=== PATIENT | female | born 1995 | race Caucasian/White ===

== ENCOUNTER 2016-10-27 09:18 | Inpatient (IN) | payer BC ==
[~2016-10-27] VITALS: Ht 170.2 cm; Wt 68.4 kg
[2016-10-27] MEDS ORDERED: ADDERALL7.5 MG PO (09:27)
[2016-10-27] MEDS ORDERED: CELEXA 20MG20 MG/TAB PO (09:27)
[2016-10-27] MEDS ORDERED: ADDERALL XR25 MG PO (09:27)
[2016-10-27 10:29] LABS: HEMATOCRIT 38.4 % (35.0-45.0); MEAN CELL VOLUME 91 fl (80.0-95.0); MEAN CORPUSCULAR HEMOGLOBIN 31 pg (26.0-32.0); MEAN CORPUSCULAR HGB CONC 34 g/dl (33.0-37.0); MEAN PLATELET VOLUME 9.7 fl (7.4-10.4); PLATELET COUNT 303 K/mm3 (130-400); RED BLOOD COUNT 4.24 M/mm3 (4.10-5.30); WHITE BLOOD COUNT 17.6 K/mm3 (4.8-10.8)
[2016-10-27 10:30] LABS: ADD PATHOLOGY DIFF REVIEW NO
[2016-10-27 10:55] LABS: BAND 17 % (0-10); METAMYELOCYTE 2 % (0-0); MYELOCYTE 6 % (0-0); NEUTROPHILS 58 % (42.0-75.2); PLATELET ESTIMATE INCREASED (NORMAL); TOTAL CELLS COUNTED 100
[2016-10-27 11:10] LABS: ADJUSTED CALCIUM 9.5 mg/dL (8.4-10.2); ALBUMIN 4.4 gm/dL (3.5-5.0); BILIRUBIN,TOTAL 1.3 mg/dL (0.0-1.0); CALCIUM 9.8 mg/dL (8.4-10.2); CREATININE, serum 0.74 mg/dL (0.52-1.25); POTASSIUM 4.3 mmol/L (3.4-5.0); TOTAL PROTEIN 8.1 gm/dL (6.4-8.2)
[2016-10-27 15:56] VITALS: BP 109/70; PULSE 102; TEMP 99.8
[2016-10-27 18:14] VITALS: TEMP 97.9
[2016-10-27 19:19] VITALS: BP 112/73; PULSE 95; TEMP 99
[2016-10-27 22:02] LABS: PH 6 (5-8); SQUAMOUS EPITHELIAL None Seen /hpf; URINE APPEARANCE Turbid; URINE BACTERIA Occasional /hpf; URINE BILIRUBIN Negative (NEGATIVE); URINE BLOOD 1+ (NEGATIVE); URINE COLOR Yellow; URINE GLUCOSE Negative (NEGATIVE); URINE KETONE 1+ (NEGATIVE); URINE UROBILINOGEN Negative (NEGATIVE)
[2016-10-27 22:04] LABS: URINE WBC 0-2 /hpf
[2016-10-28 00:17] VITALS: BP 111/55; PULSE 86; TEMP 97.8
[2016-10-28 04:16] VITALS: BP 116/75; PULSE 90; TEMP 98.1
[2016-10-28 06:57] LABS: BASO % 0.2 % (0.0-2.0); EOS # 0.2 (0.0-0.7); EOS % 1.3 % (0-4.0); GRAN # 10.2 (1.4-6.5); GRAN % 75.8 % (42.2-75.2); HEMOGLOBIN 12.1 g/dl (12.0-15.0); LYMPH # 1.9 (1.2-3.4); LYMPH % 14.1 % (20.0-51.0); MEAN CELL VOLUME 93 fl (80.0-95.0); MEAN CORPUSCULAR HEMOGLOBIN 31 pg (26.0-32.0); MEAN CORPUSCULAR HGB CONC 33 g/dl (33.0-37.0); MONO # 1.1 (0.1-0.6); MONO % 7.8 % (1.7-9.3); PLATELET COUNT 282 K/mm3 (130-400); RED BLOOD COUNT 3.91 M/mm3 (4.10-5.30); REDCELL DISTRIBUTION WIDTH-CV 12.1 % (11.5-14.5); WHITE BLOOD COUNT 13.5 K/mm3 (4.8-10.8)
[2016-10-28 07:03] LABS: HEMATOCRIT 36.3 % (35.0-45.0)
[2016-10-28 07:11] LABS: CREATININE, serum 0.7 mg/dL (0.52-1.25); POTASSIUM 4.1 mmol/L (3.4-5.0)
[2016-10-28 08:00] VITALS: BP 113/76; PULSE 84; TEMP 98.2
[2016-10-28 11:49] VITALS: BP 125/72; PULSE 86; TEMP 98.6
[2016-10-28 17:33] VITALS: BP 111/67; PULSE 94; TEMP 98.2
[2016-10-28 20:07] VITALS: BP 132/67; PULSE 89; TEMP 98.1
[2016-10-29 00:14] VITALS: BP 123/74; PULSE 98; TEMP 98.3
[2016-10-29 05:43] VITALS: BP 112/70; PULSE 100; TEMP 98.4
[2016-10-29 07:11] LABS: BASO % 0.3 % (0.0-2.0); EOS # 0.2 (0.0-0.7); EOS % 1.5 % (0-4.0); GRAN # 9.3 (1.4-6.5); GRAN % 74.2 % (42.2-75.2); HEMOGLOBIN 12.1 g/dl (12.0-15.0); LYMPH # 2.1 (1.2-3.4); LYMPH % 16.3 % (20.0-51.0); MEAN CELL VOLUME 91 fl (80.0-95.0); MEAN CORPUSCULAR HEMOGLOBIN 30 pg (26.0-32.0); MEAN CORPUSCULAR HGB CONC 34 g/dl (33.0-37.0); MEAN PLATELET VOLUME 9.5 fl (7.4-10.4); MONO # 0.8 (0.1-0.6); MONO % 6.7 % (1.7-9.3); PLATELET COUNT 331 K/mm3 (130-400); RED BLOOD COUNT 3.98 M/mm3 (4.10-5.30); WHITE BLOOD COUNT 12.6 K/mm3 (4.8-10.8)
[2016-10-29 10:00] VITALS: BP 112/68; PULSE 88; TEMP 97.5
[2016-10-29 13:53] VITALS: BP 115/62; PULSE 76; TEMP 97.8
[2016-10-29 21:33] VITALS: BP 125/78; PULSE 82; TEMP 98.4
[2016-10-29 23:05] VITALS: BP 113/75; PULSE 74; TEMP 97.7
[2016-10-30 04:00] VITALS: BP 119/52; PULSE 85; TEMP 98.6
[2016-10-30 07:31] VITALS: BP 111/67; PULSE 91; TEMP 97.8
[2016-10-30 13:06] VITALS: BP 119/62; PULSE 91; TEMP 98.6
[2016-10-30] MEDS ORDERED: CLEOCIN HCL300 MG PO (17:12)
[2016-10-30] MEDS ORDERED: NORCO 325 MG-51 TAB PO (17:14)
== END 2016-10-30 17:51 | disposition home or self-care (01) | DRG 195 ==
LOC: COL.ER 09:18 → MEDICAL 11:15
PROVIDERS: Physician Assistant
DX: J18.9 Pneumonia, unspecified organism (principal); J02.0 Streptococcal pharyngitis; F90.9 Attention-deficit hyperactivity disorder, unspecified type; F32.9 Major depressive disorder, single episode, unspecified; F41.9 Anxiety disorder, unspecified
CPT/HCPCS: 99222-AI; 99232-AI; 99239; J0692; J1200; J1650; J1956; J2405; J2543; J3370; J7030; J7050; Q9967

== ENCOUNTER 2017-06-08 12:03 | Emergency (ER) | payer OTHER ==
[~2017-06-08] VITALS: Ht 170.2 cm; Wt 61.4 kg
[~2017-06-08 12:03] MED LIST: ADDERALL XR25 MG PO; ADDERALL7.5 MG PO; CELEXA 20MG20 MG/TAB PO; CLEOCIN HCL300 MG PO; NORCO 325 MG-51 TAB PO
[2017-06-08 12:07] VITALS: TEMP 98.6
[2017-06-08 13:42] LABS: BASO % 0.3 % (0.0-2.0); EOS # 0.1 (0.0-0.7); EOS % 0.7 % (0-4.0); GRAN # 5.7 (1.4-6.5); GRAN % 65.2 % (42.2-75.2); HEMATOCRIT 43.7 % (35.0-45.0); HEMOGLOBIN 15.2 g/dl (12.0-15.0); LYMPH # 2.5 (1.2-3.4); LYMPH % 28.2 % (20.0-51.0); MEAN CELL VOLUME 91 fl (80.0-95.0); MEAN CORPUSCULAR HEMOGLOBIN 32 pg (26.0-32.0); MEAN CORPUSCULAR HGB CONC 35 g/dl (33.0-37.0); MEAN PLATELET VOLUME 9.7 fl (7.4-10.4); MONO # 0.5 (0.1-0.6); MONO % 5.4 % (1.7-9.3); PLATELET COUNT 318 K/mm3 (130-400); RED BLOOD COUNT 4.83 M/mm3 (4.10-5.30); REDCELL DISTRIBUTION WIDTH-CV 13.2 % (11.5-14.5)
[2017-06-08 13:47] LABS: INR 1.1 (0.8-3.0); PROTHROMBIN TIME 13.1 SECONDS (9.7-12.8)
[2017-06-08 13:49] LABS: PARTIAL THROMBOPLASTIN TIME 34.8 SECONDS (26.0-37.0)
[2017-06-08 13:54] LABS: ALANINE AMINOTRANSFERASE 30 U/L (9-52); ALBUMIN 4.9 gm/dL (3.5-5.0); ALKALINE PHOSPHATASE 70 U/L (50-136); ANION GAP 16 mmol/L (7-16); AST,SGOT 28 U/L (15-37); BILIRUBIN,TOTAL 1.7 mg/dL (0.0-1.0); BLOOD UREA NITROGEN 13 mg/dL (7-17); CALCIUM 10.2 mg/dL (8.4-10.2); CARBON DIOXIDE 24 mmol/L (22-30); CHLORIDE 102 mmol/L (98-107); GLUCOSE 80 mg/dL (74-106); POTASSIUM 3.8 mmol/L (3.4-5.0); SODIUM 142 mmol/L (137-145); TOTAL PROTEIN 8.7 gm/dL (6.4-8.2)
[2017-06-08 13:58] LABS: C-REACTIVE PROTEIN < 0.5 mg/dL (0.0-0.9)
[2017-06-08 14:03] LABS: TROPONIN-I < 0.012 ng/mL (0.000-0.034)
[2017-06-08 14:14] LABS: ERYTHROCYTE SEDIMENTATION RATE 1 mm/hr (0-20)
[2017-06-08 14:51] VITALS: BP 121/88; PULSE 100
== END 2017-06-08 14:54 | disposition home or self-care (01) ==
LOC: COL.ER 12:03
PROVIDERS: Physician Assistant
DX: R00.2 Palpitations (principal); F90.9 Attention-deficit hyperactivity disorder, unspecified type

== ENCOUNTER 2017-12-28 02:26 | Emergency (ER) | payer OTHER ==
[~2017-12-28] VITALS: Ht 170.2 cm; Wt 70.5 kg
[2017-12-28 02:31] VITALS: BP 134/89; TEMP 98.3
[2017-12-28] MEDS ORDERED: CIPRODEX OT (03:00)
[2017-12-28] MEDS ORDERED: OMNICEF 300MG300 MG PO (03:00)
[2017-12-28] MEDS ORDERED: LEXAPRO20 MG PO (03:05)
[2017-12-28 03:06] VITALS: PULSE 85
== END 2017-12-28 03:36 | disposition home or self-care (01) ==
LOC: COL.ER 02:26
DX: H60.91 Unspecified otitis externa, right ear (principal); J02.9 Acute pharyngitis, unspecified

== ENCOUNTER → 2018-01-02 | Outpatient (CLI) | payer OTHER ==
[~2018-01-02] MED LIST changes: +CIPRODEX OT; +LEXAPRO20 MG PO; +OMNICEF 300MG300 MG PO
== END ==
LOC: BHSO 13:50
DX: F41.0 Panic disorder [episodic paroxysmal anxiety] (principal)

== ENCOUNTER → 2018-01-23 | Outpatient (CLI) | payer OTHER | LOC: BHSO 14:57 | DX: F41.0 Panic disorder [episodic paroxysmal anxiety] (principal) ==

== ENCOUNTER → 2018-02-09 | Outpatient (CLI) | payer OTHER | LOC: BHSO 11:00 | DX: F41.0 Panic disorder [episodic paroxysmal anxiety] (principal) ==

== ENCOUNTER 2019-04-27 22:13 | Emergency (ER) | payer SELFPAY ==
[~2019-04-27] VITALS: Ht 170.2 cm; Wt 72.7 kg
[2019-04-27 22:21] VITALS: TEMP 98.5
[2019-04-27] MEDS ORDERED: MYDAYIS ER 3737.5 MG PO (22:39)
[2019-04-27] MEDS ORDERED: LAMICTAL 25MG T25 MG PO (22:39)
[2019-04-27 23:45] LABS: BASO % 0.4 % (0.0-2.0); EOS # 0.1 (0.0-0.7); EOS % 1.3 % (0-4.0); GRAN # 4.4 (1.4-6.5); GRAN % 53.3 % (42.2-75.2); HEMATOCRIT 41.5 % (37.0-47.0); HEMOGLOBIN 14.1 g/dl (12.5-16.0); LYMPH # 3.5 (1.2-3.4); MEAN CELL VOLUME 92 fl (80.0-100.0); MEAN CORPUSCULAR HEMOGLOBIN 31 pg (27.0-31.0); MEAN CORPUSCULAR HGB CONC 34 g/dl (33.0-37.0); MEAN PLATELET VOLUME 9.7 fl (7.4-10.4); MONO # 0.2 (0.1-0.6); MONO % 2.8 % (1.7-9.3); PLATELET COUNT 300 K/mm3 (130-400); RED BLOOD COUNT 4.52 M/mm3 (4.10-5.30); REDCELL DISTRIBUTION WIDTH-CV 11.9 % (11.5-14.5)
[2019-04-27 23:52] LABS: ACETAMINOPHEN < 10 ug/mL (10-30); ALANINE AMINOTRANSFERASE 17 U/L (9-52); ALBUMIN 4.7 gm/dL (3.5-5.0); ALCOHOL(ethanol),MEDICAL 123 mg/dL; ALKALINE PHOSPHATASE 49 U/L (50-136); ANION GAP 10 mmol/L (7-16); AST,SGOT 25 U/L (15-37); BILIRUBIN,TOTAL 0.5 mg/dL (0.0-1.0); BLOOD UREA NITROGEN 11 mg/dL (7-17); CALCIUM 9.4 mg/dL (8.4-10.2); CARBON DIOXIDE 26 mmol/L (22-30); CHLORIDE 110 mmol/L (98-107); CREATININE, serum 0.74 (0.52-1.25); GLUCOSE 121 mg/dL (74-106); POTASSIUM 3.9 mmol/L (3.4-5.0); SALICYLATE < 1.0 mg/dL; SODIUM 145 mmol/L (137-145); TOTAL PROTEIN 7.7 gm/dL (6.4-8.2)
[2019-04-28 00:21] LABS: TSH w REFLEX 0.877 uIU/mL (0.465-4.680)
[2019-04-28 00:47] LABS: COLLECTION METHOD CLEAN CATCH
[2019-04-28 00:53] LABS: PH 5 (5-8); SQUAMOUS EPITHELIAL None Seen /hpf; URINE APPEARANCE Clear; URINE BACTERIA None Seen /hpf; URINE BILIRUBIN Negative (NEGATIVE); URINE BLOOD Negative (NEGATIVE); URINE COLOR Yellow; URINE GLUCOSE Negative (NEGATIVE); URINE KETONE Negative (NEGATIVE); URINE LEUKOCYTE ESTERASE Negative (NEGATIVE); URINE NITRATE Negative (NEGATIVE); URINE PROTEIN(semi-quant) Negative (NEGATIVE); URINE RBC None Seen /hpf; URINE UROBILINOGEN Negative (NEGATIVE)
[2019-04-28 01:07] LABS: TRICYCLIC ANTIDEPRESS URINE NEGATIVE
[2019-04-28 03:37] VITALS: BP 116/69; PULSE 98
== END 2019-04-28 03:37 | disposition home or self-care (01) ==
LOC: COL.ER 22:13
PROVIDERS: Nurse Practitioner
DX: F32.9 Major depressive disorder, single episode, unspecified (principal); R45.851 Suicidal ideations; F90.9 Attention-deficit hyperactivity disorder, unspecified type; F41.9 Anxiety disorder, unspecified

== ENCOUNTER 2019-11-24 18:11 | Emergency (ER) | payer OTHER ==
[~2019-11-24] VITALS: Ht 170.2 cm; Wt 72.7 kg
[~2019-11-24 18:11] MED LIST changes: +LAMICTAL 25MG T25 MG PO; +MYDAYIS ER 3737.5 MG PO
[2019-11-24 18:24] VITALS: TEMP 98.3
[2019-11-24 18:49] LABS: BASO # 0.1 (0.0-0.2); BASO % 0.3 % (0.0-2.0); EOS % 0.2 % (0-4.0); GRAN # 11.9 (1.4-6.5); GRAN % 82.8 % (42.2-75.2); HEMATOCRIT 41.3 % (37.0-47.0); LYMPH # 1.9 (1.2-3.4); LYMPH % 12.9 % (20.0-51.0); MEAN CELL VOLUME 92 fl (80.0-100.0); MEAN CORPUSCULAR HEMOGLOBIN 31 pg (27.0-31.0); MEAN CORPUSCULAR HGB CONC 34 g/dl (33.0-37.0); MEAN PLATELET VOLUME 9.6 fl (7.4-10.4); MONO # 0.5 (0.1-0.6); MONO % 3.4 % (1.7-9.3); PLATELET COUNT 257 K/mm3 (130-400); REDCELL DISTRIBUTION WIDTH-CV 12.6 % (11.5-14.5)
[2019-11-24] MEDS ORDERED: CYMBALTA 30MG30 MG PO (18:51)
[2019-11-24 19:04] LABS: ALANINE AMINOTRANSFERASE 23 U/L (4-34); ALBUMIN 4.7 gm/dL (3.5-5.0); ALKALINE PHOSPHATASE 67 U/L (50-136); ANION GAP 9 mmol/L (7-16); AST,SGOT 30 U/L (15-37); BILIRUBIN,TOTAL 0.9 mg/dL (0.0-1.0); BLOOD UREA NITROGEN 13 mg/dL (7-17); C-REACTIVE PROTEIN < 0.5 mg/dL (0.0-0.9); CALCIUM 9.3 mg/dL (8.4-10.2); CARBON DIOXIDE 28 mmol/L (22-30); CHLORIDE 104 mmol/L (98-107); CREATININE, serum 0.69 (0.52-1.25); GLUCOSE 91 mg/dL (74-106); LIPASE 63 U/L (23-300); POTASSIUM 3.7 mmol/L (3.4-5.0); SODIUM 140 mmol/L (137-145); TOTAL PROTEIN 7.8 gm/dL (6.4-8.2)
[2019-11-24 20:05] LABS: COLLECTION METHOD CLEAN CATCH
[2019-11-24 20:14] LABS: MUCOUS Present /lpf; PH 6 (5-8); SQUAMOUS EPITHELIAL 0-2 /hpf; URINE APPEARANCE Clear; URINE BACTERIA None Seen /hpf; URINE BILIRUBIN Negative (NEGATIVE); URINE BLOOD Negative (NEGATIVE); URINE COLOR Yellow; URINE GLUCOSE Negative (NEGATIVE); URINE KETONE 2+ (NEGATIVE); URINE LEUKOCYTE ESTERASE Negative (NEGATIVE); URINE NITRATE Negative (NEGATIVE); URINE PROTEIN(semi-quant) 2+ (NEGATIVE); URINE RBC 0-2 /hpf; URINE UROBILINOGEN Negative (NEGATIVE)
[2019-11-24] MEDS ORDERED: ZOFRAN ODT4 MG PO (20:22)
[2019-11-24 20:40] VITALS: BP 120/94; PULSE 88
== END 2019-11-24 20:40 | disposition home or self-care (01) ==
LOC: COL.ER 18:11
PROVIDERS: Family Medicine
DX: K52.9 Noninfective gastroenteritis and colitis, unspecified (principal); Z32.02 Encounter for pregnancy test, result negative
CPT/HCPCS: J2270; J2405; J7120